=== PATIENT | male | born 1980 | race Caucasian/White ===

== ENCOUNTER 2021-06-27 14:13 | Outpatient (REF) | payer OTHER, SELFPAY ==
[2021-06-27 14:31] LABS: MANUAL DIFF FLAG NO
[2021-06-27 14:50] LABS: Basophils Percent Auto 0.4 % (0-2); Eosinophils Absolute Auto 0.2 X10*3/uL (0.0-0.4); Eosinophils Percent Auto 2.9 % (0-4); Hematocrit 39.4 % (42.0-52.0); Hemoglobin 13.4 g/dl (14.0-18.0); Imm Gran Abs Auto 0.02 X10*3/uL (0.00-0.03); Imm Gran Pct Auto 0.3 % (0.0-0.4); Lymphocytes Absolute Auto 2.3 X10*3/uL (1.2-4.9); Lymphocytes Percent Auto 28.7 % (20-40); Mean Corpuscular Hemoglobin 30.7 pg (27.0-33.0); Mean Corpuscular Volume 90.4 fL (80.0-98.0); Mean Platelet Volume 10.1 fL (9.4-12.4); Monocytes Absolute Auto 0.7 X10*3/uL (0.1-1.2); Monocytes Percent Auto 8.7 % (2-11); Neutrophils Absolute Auto 4.6 x10*3/uL (2.0-8.3); Platelet Count 325 X10*3/uL (160-400); Red Blood Count 4.36 X10*6/uL (4.60-5.80); Red Cell Distribution Width 12.9 % (11.0-16.0); White Blood Count 7.8 X10*3/uL (4.8-10.8)
[2021-06-27 14:57] LABS: Estimated Average Glucose 100 mg/dL; Hemoglobin A1c % 5.1 %
[2021-06-27 15:13] LABS: Alanine Aminotransferase 25 U/L (0-40); Albumin Level 4.4 g/dL (3.5-5.0); Alkaline Phosphatase 78 U/L (39-117); Anion Gap 11 (12-20); Aspartate Amino Transferase 28 U/L (5-37); Bilirubin Total 0.4 mg/dL (0.0-1.0); Blood Urea Nitrogen 14 mg/dL (9-16); Calcium 9.6 mg/dL (8.4-10.2); Carbon Dioxide 28 mmol/L (22-29); Chloride 105 mmol/L (96-108); Cholesterol 246 mg/dL; Estimated Glomerular Filt Rate > 60; Glucose Fasting 88 mg/dL (60-99); HDL Cholesterol 59 mg/dL; LDL Cholesterol Calculated 165 mg/dl; Sodium 140 mmol/L (135-145); Total Protein 7.2 g/dL (6.5-8.0); Triglycerides 111 mg/dL
[2021-06-27 15:34] LABS: TSH reflex Free T4 0.64 uIU/mL (0.32-4.0)
[2021-06-27 15:46] LABS: Folate > 20.0 ng/mL (> or = 4.0); Vitamin B12 590 pg/mL (200-900)
[2021-07-02 11:10] LABS: Vitamin D 25-OH, D2 <4 ng/mL; Vitamin D 25-OH, D3 27 ng/mL; Vitamin D 25-OH, Total 27 ng/mL (30-100)
== END 2021-06-27 14:14 | disposition home or self-care (01) ==
LOC: HO.LAB 14:13
PROVIDERS: PCP Internal Medicine; Visit Provider Nurse Practitioner Acute Care
DX: Z86.39 Personal history of other endocrine, nutritional and metabolic disease (principal); Z23 Encounter for immunization
CPT/HCPCS: 36415; 80053; 80061; 82306; 82607; 82746; 83036; 84443; 85025

== ENCOUNTER 2022-05-21 07:00 | Outpatient (RCR) | payer OTHER, SELFPAY | END 2022-08-15 07:41 | disposition home or self-care (01) | LOC: HO.PTWFD 07:00 | PROVIDERS: Visit Provider Family Medicine | DX: M54.9 Dorsalgia, unspecified (principal) | CPT/HCPCS: 97110; 97161; 97535 ==

== ENCOUNTER 2022-10-03 15:22 | Outpatient (REF) | payer OTHER, SELFPAY ==
--- NOTE | ~2022-10-03 | XR_ITS ---
EXAMINATION: XR CHEST CLINICAL INFORMATION: Cough. COMPARISON: None available. TECHNIQUE: 2 views of the chest were obtained. FINDINGS: No significant abnormality is noted involving the heart, lungs, mediastinum, bony thorax or soft tissues. XR/XR chest 2V IMPRESSION: Unremarkable examination.
== END 2022-10-03 15:23 | disposition home or self-care (01) ==
LOC: HO.HMGCX 15:22
PROVIDERS: PCP Internal Medicine; Visit Provider Physician Assistant Medical
DX: R05.9 Cough, unspecified (principal)
CPT/HCPCS: 71046

== ENCOUNTER 2022-10-03 18:17 | Emergency (ER) | payer OTHER, SELFPAY ==
--- NOTE | 2022-10-03 | ECG_ITS ---
Test Reason : CP Blood Pressure : / mmHG Vent. Rate : 060 BPM Atrial Rate : 060 BPM P-R Int : 144 ms QRS Dur : 092 ms QT Int : 372 ms P-R-T Axes : 048 070 057 degrees QTc Int : 372 ms Normal sinus rhythm Minimal voltage criteria for LVH, may be normal variant ( Sokolow-Gusman ) Borderline ECG No previous ECGs available Referred By: Aida Washington Electronically Signed By:RAUL DENNY MD
[2022-10-03 18:21] VITALS: BP 140/87; PULSE 67; RESP 19; TEMP 36.7; O2SAT 99; BMI 22.6
--- NOTE | 2022-10-03 18:21 | ED_ITS ---
HPI - Chest Pain General Chief Complaint: Chest Pain <Aida Washington NP - Last Filed: 10/03/22 18:23> Stated Complaint: Chest Pain when breathing sent by Dr for CT Scan? <Aida Washington NP - Last Filed: 10/03/22 18:23> Time Seen by Provider: 10/03/22 23:18 <Aida Washington NP - Last Filed: 10/03/22 18:23> Source: patient <Mayco Cason MD - Last Filed: 10/03/22 23:44> Mode of arrival: ambulatory <Mayco Cason MD - Last Filed: 10/03/22 23:44> Limitations: no limitations <Mayco Cason MD - Last Filed: 10/03/22 23:44> History of Present Illness HPI narrative: Patient history of anxiety no history of coronary disease complaining of left-sided chest pain for 3 weeks nonspecific pain feels deep inside feels increased pain on deep inspiration occasional cough he had URI few months ago seen his PCP wanted to rule out PE. Patient denies any leg swelling or pain <Mayco Cason MD - Last Filed: 10/03/22 23:44> Related Data Home Medications: Home Medications Medication Instructions Recorded Confirmed fluoxetine 40 mg capsule 40 mg PO BEDTIME 06/27/21 06/27/21 Previous Rx's Medication Instructions Recorded ibuprofen 600 mg tablet 600 mg PO Q6H PRN fever or pain 10/03/22 #30 tabs <Aida Washington NP - Last Filed: 10/03/22 18:23> Allergies/Adverse Reactions: Allergies Allergy/AdvReac Type Severity Reaction Status Date / Time No Known Allergies Allergy Verified 10/03/22 18:21 <Aida Washington NP - Last Filed: 10/03/22 18:23> Review of Systems Review of Systems: Yes all other systems are reviewed and are negative <Mayco Cason MD - Last Filed: 10/03/22 23:44> PMF Family History Family History: Family History Father No problems noted. Mother High blood pressure Heart problem Other Mental health problem <Aida Washington NP - Last Filed: 10/03/22 18:23> Social History Social History: Social History Housing: House Alcohol intake: former Patient Tobacco Use Status: Never used Tobacco Second Hand Smoke Exposure: Yes Substance Use Type: Marijuana service: No Current occupational status: unemployed <Aida Washington NP - Last Filed: 10/03/22 18:23> Physical Exam Vital Signs: Vital Signs: Last Vital Signs Temp 98.4 F 10/03/22 22:51 Pulse 57 10/03/22 22:51 Resp 17 10/03/22 22:51 BP 134/87 10/03/22 22:51 Pulse Ox 99 10/03/22 22:51 O2 Del Method Room Air 10/03/22 22:51 BMI result Body Mass Index 22.6 <Aida Washington NP - Last Filed: 10/03/22 18:23> Vital Signs: Last Vital Signs Temp 98.4 F 10/03/22 22:51 Pulse 57 10/03/22 22:51 Resp 17 10/03/22 22:51 BP 134/87 10/03/22 22:51 Pulse Ox 99 10/03/22 22:51 O2 Del Method Room Air 10/03/22 22:51 BMI result Body Mass Index 22.6 <Mayco Cason MD - Last Filed: 10/03/22 23:44> Vital Signs: Last Vital Signs Temp 98.4 F 10/03/22 22:51 Pulse 57 10/03/22 22:51 Resp 17 10/03/22 22:51 BP 134/87 10/03/22 22:51 Pulse Ox 99 10/03/22 22:51 O2 Del Method Room Air 10/03/22 22:51 BMI result Body Mass Index 22.6 <Keron Jameson MD - Last Filed: 10/07/22 17:43> Appearance: Alert. Oriented X3. No acute distress. Eyes: No pallor or icterus ENT: Pharynx normal. Oral Mucosa moist Neck: Normal inspection. Neck supple. CVS: Normal heart rate and rhythm. Pulses normal. Respiratory: No respiratory distress. Equal air entry bilateral, no wheezing/rales/rhonchi Abdomen: Soft and nontender. Bowel sounds are present, no mass palpable, no CVA tenderness Skin: Skin warm and dry. Normal skin color. Normal skin turgor. Extremities: No lower extremity edema. No calf tenderness Neuro: Oriented X 3. No motor deficit. <Mayco Cason MD - Last Filed: 10/03/22 23:44> Course Course Course Narrative: this is a rapid medical exam. Deferred additional HPI, ROS, PE to primary provider. 42 yo male here with pleuritic chest pain x several weeks. Patient was seen walk-in center and had a chest x-ray. This was reportedly normal. He was referred into the ER for further evaluation. Will obtain labs, EKG, COVID screen. <Aida Washington NP - Last Filed: 10/03/22 18:23> Medical Decision Making Medical Decision Making [facility] Narrative: Patient atypical left-sided chest pain for 3 weeks EKg high Sensitive troponin and D-dimer negative heart score of 0 will discharge patient home <Mayco Cason MD - Last Filed: 10/03/22 23:44> Differential Diagnosis CAD/ACS/PE/pneumonia/pneumonitis/pneumothorax <Mayco Cason MD - Last Filed: 10/03/22 23:44> Lab Data [facility] Lab Attestation statement: I reviewed the patient's lab results. <Mayco Cason MD - Last Filed: 10/03/22 23:44> Result Diagrams: 10/03/22 18:40 10/03/22 18:40 <Aida Washington NP - Last Filed: 10/03/22 18:23> Labs: Lab Results 10/03/22 10/03/22 10/03/22 Range/Units 18:40 18:40 18:40 WBC 6.9 (4.8-10.8) X10*3/uL RBC 4.17 L (4.60-5.80) X10*6/uL Hgb 12.9 L (14.0-18.0) g/dl Hct 37.2 L (42.0-52.0) % MCV 89.2 (80.0-98.0) fL MCH 30.9 (27.0-33.0) pg MCHC 34.7 (31.0-36.0) g/dl RDW 13.2 (11.0-16.0) % Plt Count 353 (160-400) X10*3/uL MPV 9.9 (9.4-12.4) fL Immature Gran % (Auto) 0.1 (0.0-0.4) % Neut % (Auto) 48.8 (45-73) % Lymph % (Auto) 36.2 (20-40) % Dooly % (Auto) 10.4 (2-11) % Eos % (Auto) 3.8 (0-4) % Baso % (Auto) 0.7 (0-2) % Lymph # (Auto) 2.5 (1.2-4.9) X10*3/uL Dooly # (Auto) 0.7 (0.1-1.2) X10*3/uL Eos # (Auto) 0.3 (0.0-0.4) X10*3/uL Baso # (Auto) 0.1 (0.0-0.2) X10*3/uL Abs Immat Gran (auto) 0.01 (0.00-0.03) X10*3/uL Absolute Neuts (auto) 3.4 (2.0-8.3) x10*3/uL Absolute Nucleated RBC 0.000 (0.0-0.012) X10*3/uL Nucleated RBC % (auto) 0.0 (0.0-0.2) /100WBC PT 10.9 (10.0-13.1) SEC INR 1.0 (0.9-1.1) D-Dimer High Sensitivty < 150 NG/ML Sodium 140 (135-145) mmol/L Potassium 4.1 (3.3-5.1) mmol/L Chloride 107 (96-108) mmol/L Carbon Dioxide 27 (22-29) mmol/L Anion Gap 10 L (12-20) BUN 18 H (9-16) mg/dL Creatinine 0.84 (0.5-1.4) mg/dL Estim Creat Clear Calc 102.8 Estimated GFR > 60 Random Glucose 86 (60-115) mg/dL Calcium 8.8 D (8.4-10.2) mg/dL Total Bilirubin 0.4 (0.0-1.0) mg/dL Direct Bilirubin 0.1 (0.0-0.5) mg/dL AST 25 (5-37) U/L ALT 22 (0-40) U/L Alkaline Phosphatase 66 (39-117) U/L Troponin I High Sens (<3.5-35.0) ng/L Total Protein 6.5 (6.5-8.0) g/dL Albumin 4.1 (3.5-5.0) g/dL COVID-19 (NANCY) (Negative) COVID-19 Clin Com 10/03/22 10/03/22 Range/Units 18:40 18:40 WBC (4.8-10.8) X10*3/uL RBC (4.60-5.80) X10*6/uL Hgb (14.0-18.0) g/dl Hct (42.0-52.0) % MCV (80.0-98.0) fL MCH (27.0-33.0) pg MCHC (31.0-36.0) g/dl RDW (11.0-16.0) % Plt Count (160-400) X10*3/uL MPV (9.4-12.4) fL Immature Gran % (Auto) (0.0-0.4) % Neut % (Auto) (45-73) % Lymph % (Auto) (20-40) % Dooly % (Auto) (2-11) % Eos % (Auto) (0-4) % Baso % (Auto) (0-2) % Lymph # (Auto) (1.2-4.9) X10*3/uL Dooly # (Auto) (0.1-1.2) X10*3/uL Eos # (Auto) (0.0-0.4) X10*3/uL Baso # (Auto) (0.0-0.2) X10*3/uL Abs Immat Gran (auto) (0.00-0.03) X10*3/uL Absolute Neuts (auto) (2.0-8.3) x10*3/uL Absolute Nucleated RBC (0.0-0.012) X10*3/uL Nucleated RBC % (auto) (0.0-0.2) /100WBC PT (10.0-13.1) SEC INR (0.9-1.1) D-Dimer High Sensitivty NG/ML Sodium (135-145) mmol/L Potassium (3.3-5.1) mmol/L Chloride (96-108) mmol/L Carbon Dioxide (22-29) mmol/L Anion Gap (12-20) BUN (9-16) mg/dL Creatinine (0.5-1.4) mg/dL Estim Creat Clear Calc Estimated GFR Random Glucose (60-115) mg/dL Calcium (8.4-10.2) mg/dL Total Bilirubin (0.0-1.0) mg/dL Direct Bilirubin (0.0-0.5) mg/dL AST (5-37) U/L ALT (0-40) U/L Alkaline Phosphatase (39-117) U/L Troponin I High Sens < 2.7 (<3.5-35.0) ng/L Total Protein (6.5-8.0) g/dL Albumin (3.5-5.0) g/dL COVID-19 (NANCY) Negative (Negative) COVID-19 Clin Com See Note <Aida Washington, NURSING STAFF DEVELOPMENT COORDINATOR - Last Filed: 10/03/22 18:23> Lab Results 10/03/22 10/03/22 10/03/22 Range/Units 18:40 18:40 18:40 WBC 6.9 (4.8-10.8) X10*3/uL RBC 4.17 L (4.60-5.80) X10*6/uL Hgb 12.9 L (14.0-18.0) g/dl Hct 37.2 L (42.0-52.0) % MCV 89.2 (80.0-98.0) fL MCH 30.9 (27.0-33.0) pg MCHC 34.7 (31.0-36.0) g/dl RDW 13.2 (11.0-16.0) % Plt Count 353 (160-400) X10*3/uL MPV 9.9 (9.4-12.4) fL Immature Gran % (Auto) 0.1 (0.0-0.4) % Neut % (Auto) 48.8 (45-73) % Lymph % (Auto) 36.2 (20-40) % Dooly % (Auto) 10.4 (2-11) % Eos % (Auto) 3.8 (0-4) % Baso % (Auto) 0.7 (0-2) % Lymph # (Auto) 2.5 (1.2-4.9) X10*3/uL Dooly # (Auto) 0.7 (0.1-1.2) X10*3/uL Eos # (Auto) 0.3 (0.0-0.4) X10*3/uL Baso # (Auto) 0.1 (0.0-0.2) X10*3/uL Abs Immat Gran (auto) 0.01 (0.00-0.03) X10*3/uL Absolute Neuts (auto) 3.4 (2.0-8.3) x10*3/uL Absolute Nucleated RBC 0.000 (0.0-0.012) X10*3/uL Nucleated RBC % (auto) 0.0 (0.0-0.2) /100WBC PT 10.9 (10.0-13.1) SEC INR 1.0 (0.9-1.1) D-Dimer High Sensitivty < 150 NG/ML Sodium 140 (135-145) mmol/L Potassium 4.1 (3.3-5.1) mmol/L Chloride 107 (96-108) mmol/L Carbon Dioxide 27 (22-29) mmol/L Anion Gap 10 L (12-20) BUN 18 H (9-16) mg/dL Creatinine 0.84 (0.5-1.4) mg/dL Estim Creat Clear Calc 102.8 Estimated GFR > 60 Random Glucose 86 (60-115) mg/dL Calcium 8.8 D (8.4-10.2) mg/dL Total Bilirubin 0.4 (0.0-1.0) mg/dL Direct Bilirubin 0.1 (0.0-0.5) mg/dL AST 25 (5-37) U/L ALT 22 (0-40) U/L Alkaline Phosphatase 66 (39-117) U/L Troponin I High Sens (<3.5-35.0) ng/L Total Protein 6.5 (6.5-8.0) g/dL Albumin 4.1 (3.5-5.0) g/dL COVID-19 (NANCY) (Negative) COVID-19 Clin Com 10/03/22 10/03/22 Range/Units 18:40 18:40 WBC (4.8-10.8) X10*3/uL RBC (4.60-5.80) X10*6/uL Hgb (14.0-18.0) g/dl Hct (42.0-52.0) % MCV (80.0-98.0) fL MCH (27.0-33.0) pg MCHC (31.0-36.0) g/dl RDW (11.0-16.0) % Plt Count (160-400) X10*3/uL MPV (9.4-12.4) fL Immature Gran % (Auto) (0.0-0.4) % Neut % (Auto) (45-73) % Lymph % (Auto) (20-40) % Dooly % (Auto) (2-11) % Eos % (Auto) (0-4) % Baso % (Auto) (0-2) % Lymph # (Auto) (1.2-4.9) X10*3/uL Dooly # (Auto) (0.1-1.2) X10*3/uL Eos # (Auto) (0.0-0.4) X10*3/uL Baso # (Auto) (0.0-0.2) X10*3/uL Abs Immat Gran (auto) (0.00-0.03) X10*3/uL Absolute Neuts (auto) (2.0-8.3) x10*3/uL Absolute Nucleated RBC (0.0-0.012) X10*3/uL Nucleated RBC % (auto) (0.0-0.2) /100WBC PT (10.0-13.1) SEC INR (0.9-1.1) D-Dimer High Sensitivty NG/ML Sodium (135-145) mmol/L Potassium (3.3-5.1) mmol/L Chloride (96-108) mmol/L Carbon Dioxide (22-29) mmol/L Anion Gap (12-20) BUN (9-16) mg/dL Creatinine (0.5-1.4) mg/dL Estim Creat Clear Calc Estimated GFR Random Glucose (60-115) mg/dL Calcium (8.4-10.2) mg/dL Total Bilirubin (0.0-1.0) mg/dL Direct Bilirubin (0.0-0.5) mg/dL AST (5-37) U/L ALT (0-40) U/L Alkaline Phosphatase (39-117) U/L Troponin I High Sens < 2.7 (<3.5-35.0) ng/L Total Protein (6.5-8.0) g/dL Albumin (3.5-5.0) g/dL COVID-19 (NANCY) Negative (Negative) COVID-19 Clin Com See Note <Mayco Cason MD - Last Filed: 10/03/22 23:44> Lab Results 10/03/22 10/03/22 10/03/22 Range/Units 18:40 18:40 18:40 WBC 6.9 (4.8-10.8) X10*3/uL RBC 4.17 L (4.60-5.80) X10*6/uL Hgb 12.9 L (14.0-18.0) g/dl Hct 37.2 L (42.0-52.0) % MCV 89.2 (80.0-98.0) fL MCH 30.9 (27.0-33.0) pg MCHC 34.7 (31.0-36.0) g/dl RDW 13.2 (11.0-16.0) % Plt Count 353 (160-400) X10*3/uL MPV 9.9 (9.4-12.4) fL Immature Gran % (Auto) 0.1 (0.0-0.4) % Neut % (Auto) 48.8 (45-73) % Lymph % (Auto) 36.2 (20-40) % Dooly % (Auto) 10.4 (2-11) % Eos % (Auto) 3.8 (0-4) % Baso % (Auto) 0.7 (0-2) % Lymph # (Auto) 2.5 (1.2-4.9) X10*3/uL Dooly # (Auto) 0.7 (0.1-1.2) X10*3/uL Eos # (Auto) 0.3 (0.0-0.4) X10*3/uL Baso # (Auto) 0.1 (0.0-0.2) X10*3/uL Abs Immat Gran (auto) 0.01 (0.00-0.03) X10*3/uL Absolute Neuts (auto) 3.4 (2.0-8.3) x10*3/uL Absolute Nucleated RBC 0.000 (0.0-0.012) X10*3/uL Nucleated RBC % (auto) 0.0 (0.0-0.2) /100WBC PT 10.9 (10.0-13.1) SEC INR 1.0 (0.9-1.1) D-Dimer High Sensitivty < 150 NG/ML Sodium 140 (135-145) mmol/L Potassium 4.1 (3.3-5.1) mmol/L Chloride 107 (96-108) mmol/L Carbon Dioxide 27 (22-29) mmol/L Anion Gap 10 L (12-20) BUN 18 H (9-16) mg/dL Creatinine 0.84 (0.5-1.4) mg/dL Estim Creat Clear Calc 102.8 Estimated GFR > 60 Random Glucose 86 (60-115) mg/dL Calcium 8.8 D (8.4-10.2) mg/dL Total Bilirubin 0.4 (0.0-1.0) mg/dL Direct Bilirubin 0.1 (0.0-0.5) mg/dL AST 25 (5-37) U/L ALT 22 (0-40) U/L Alkaline Phosphatase 66 (39-117) U/L Troponin I High Sens (<3.5-35.0) ng/L Total Protein 6.5 (6.5-8.0) g/dL Albumin 4.1 (3.5-5.0) g/dL COVID-19 (NANCY) (Negative) COVID-19 Clin Com 10/03/22 10/03/22 Range/Units 18:40 18:40 WBC (4.8-10.8) X10*3/uL RBC (4.60-5.80) X10*6/uL Hgb (14.0-18.0) g/dl Hct (42.0-52.0) % MCV (80.0-98.0) fL MCH (27.0-33.0) pg MCHC (31.0-36.0) g/dl RDW (11.0-16.0) % Plt Count (160-400) X10*3/uL MPV (9.4-12.4) fL Immature Gran % (Auto) (0.0-0.4) % Neut % (Auto) (45-73) % Lymph % (Auto) (20-40) % Dooly % (Auto) (2-11) % Eos % (Auto) (0-4) % Baso % (Auto) (0-2) % Lymph # (Auto) (1.2-4.9) X10*3/uL Dooly # (Auto) (0.1-1.2) X10*3/uL Eos # (Auto) (0.0-0.4) X10*3/uL Baso # (Auto) (0.0-0.2) X10*3/uL Abs Immat Gran (auto) (0.00-0.03) X10*3/uL Absolute Neuts (auto) (2.0-8.3) x10*3/uL Absolute Nucleated RBC (0.0-0.012) X10*3/uL Nucleated RBC % (auto) (0.0-0.2) /100WBC PT (10.0-13.1) SEC INR (0.9-1.1) D-Dimer High Sensitivty NG/ML Sodium (135-145) mmol/L Potassium (3.3-5.1) mmol/L Chloride (96-108) mmol/L Carbon Dioxide (22-29) mmol/L Anion Gap (12-20) BUN (9-16) mg/dL Creatinine (0.5-1.4) mg/dL Estim Creat Clear Calc Estimated GFR Random Glucose (60-115) mg/dL Calcium (8.4-10.2) mg/dL Total Bilirubin (0.0-1.0) mg/dL Direct Bilirubin (0.0-0.5) mg/dL AST (5-37) U/L ALT (0-40) U/L Alkaline Phosphatase (39-117) U/L Troponin I High Sens < 2.7 (<3.5-35.0) ng/L Total Protein (6.5-8.0) g/dL Albumin (3.5-5.0) g/dL COVID-19 (NANCY) Negative (Negative) COVID-19 Clin Com See Note <Keron Jameson MD - Last Filed: 10/07/22 17:43> Independent Interpretation I performed an independent interpretation of an: EKG <Mayco Cason MD - Last Filed: 10/03/22 23:44> Interpretation: Normal sinus rhythm 160 beats per minute LVH no acute ST-T no acute ischemia <Mayco aCson MD - Last Filed: 10/03/22 23:44> Scores Heart Score History: -0- slightly suspicious <Mayco Cason MD - Last Filed: 10/03/22 23:44> ECG: -0- normal <Mayco Cason MD - Last Filed: 10/03/22 23:44> Age: -0- < or = 45 <Mayco Cason MD - Last Filed: 10/03/22 23:44> Risk factory: -0- no risk factors known <Mayco Cason MD - Last Filed: 10/03/22 23:44> Troponin: -0- < or = normal limit <Mayco Cason MD - Last Filed: 10/03/22 23:44> Score: 0 <Mayco Cason MD - Last Filed: 10/03/22 23:44> 0 <Keron Jameson MD - Last Filed: 10/07/22 17:43> Risk: 1.7% <Mayco Cason MD - Last Filed: 10/03/22 23:44> 1.7% <Keron Jameson MD - Last Filed: 10/07/22 17:43> Discharge Plan Discharge Clinical Impression: Atypical chest pain <Aida Washington NP - Last Filed: 10/03/22 18:23> Patient Disposition: Home, Self-Care <Aida Washington NP - Last Filed: 10/03/22 18:23> Instructions: Noncardiac Chest Pain (ED) <Aida Washington NP - Last Filed: 10/03/22 18:23> Additional Instructions: The chest pain is likely not from the heart or the lungs likely musculoskeletal Take ibuprofen for pain And follow with PCP <Aida Washington NP - Last Filed: 10/03/22 18:23> Prescriptions: New ibuprofen 600 mg tablet 600 mg PO Q6H PRN (Reason: fever or pain) Qty: 30 0RF No Action fluoxetine 40 mg capsule 40 mg PO BEDTIME <Aida Washington NP - Last Filed: 10/03/22 18:23> Interventions: ED Discharge Assessment Last Done: 10/04/22 00:09 <Aida Washington NP - Last Filed: 10/03/22 18:23> Discharge Date/Time: 10/04/22 00:11 <Aida Washington NP - Last Filed: 10/03/22 18:23>
[2022-10-03 18:46] LABS: MANUAL DIFF FLAG NO
[2022-10-03 18:48] LABS: Basophils Absolute Auto 0.1 X10*3/uL (0.0-0.2); Basophils Percent Auto 0.7 % (0-2); Eosinophils Absolute Auto 0.3 X10*3/uL (0.0-0.4); Eosinophils Percent Auto 3.8 % (0-4); Hematocrit 37.2 % (42.0-52.0); Hemoglobin 12.9 g/dl (14.0-18.0); Imm Gran Abs Auto 0.01 X10*3/uL (0.00-0.03); Imm Gran Pct Auto 0.1 % (0.0-0.4); Lymphocytes Absolute Auto 2.5 X10*3/uL (1.2-4.9); Lymphocytes Percent Auto 36.2 % (20-40); Mean Corpuscular HGB Conc 34.7 g/dl (31.0-36.0); Mean Corpuscular Hemoglobin 30.9 pg (27.0-33.0); Mean Corpuscular Volume 89.2 fL (80.0-98.0); Mean Platelet Volume 9.9 fL (9.4-12.4); Monocytes Absolute Auto 0.7 X10*3/uL (0.1-1.2); Monocytes Percent Auto 10.4 % (2-11); Neutrophils Absolute Auto 3.4 x10*3/uL (2.0-8.3); Neutrophils Percent Auto 48.8 % (45-73); Platelet Count 353 X10*3/uL (160-400); Red Blood Count 4.17 X10*6/uL (4.60-5.80); Red Cell Distribution Width 13.2 % (11.0-16.0); White Blood Count 6.9 X10*3/uL (4.8-10.8)
[2022-10-03 18:58] LABS: Prothrombin Time 10.9 SEC (10.0-13.1)
[2022-10-03 19:05] LABS: COVID-19 Test Negative (Negative); IDNOW Serial# 08D9AD1C
[2022-10-03 19:08] LABS: Alanine Aminotransferase 22 U/L (0-40); Albumin Level 4.1 g/dL (3.5-5.0); Alkaline Phosphatase 66 U/L (39-117); Anion Gap 10 (12-20); Aspartate Amino Transferase 25 U/L (5-37); Bilirubin Direct 0.1 mg/dL (0.0-0.5); Bilirubin Total 0.4 mg/dL (0.0-1.0); Blood Urea Nitrogen 18 mg/dL (9-16); Calcium 8.8 mg/dL (8.4-10.2); Carbon Dioxide 27 mmol/L (22-29); Chloride 107 mmol/L (96-108); Creatinine Clr Calc Pharmacy 102.8; Estimated Glomerular Filt Rate > 60; Glucose Random 86 mg/dL (60-115); Potassium 4.1 mmol/L (3.3-5.1); Sodium 140 mmol/L (135-145); Total Protein 6.5 g/dL (6.5-8.0)
[2022-10-03 19:20] LABS: Troponin-I High Sensitivity < 2.7 ng/L (<3.5-35.0)
[2022-10-03 19:50] LABS: D Dimer High Sensitivity < 150 NG/ML
[2022-10-03 22:51] VITALS: BP 134/87; PULSE 57; RESP 17; TEMP 36.9; O2SAT 99
== END 2022-10-04 00:11 | disposition home or self-care (01) ==
PROVIDERS: Nurse Practitioner Family; Emergency Provider Internal Medicine; PCP Internal Medicine
DX: R07.89 Other chest pain (principal); R06.02 Shortness of breath; R05.9 Cough, unspecified; Z20.822 Contact with and (suspected) exposure to COVID-19; Z20.828 Contact with and (suspected) exposure to other viral communicable diseases; Z79.899 Other long term (current) drug therapy
CPT/HCPCS: 36415; 80048; 80076; 84484; 85025; 85379; 85610; 87635; 93005; 99283

== ENCOUNTER 2022-11-01 07:28 | Outpatient (REF) | payer OTHER, SELFPAY ==
--- NOTE | ~2022-11-01 | CT_ITS ---
EXAMINATION: CT CHEST WITHOUT CONTRAST CLINICAL INFORMATION: Chest pain COMPARISON: Previous chest x-ray September 2022 TECHNIQUE: Multidetector volumetric CT imaging of the chest was done. Axial MIP volume rendering provided. Sagittal and coronal reformatted images were obtained. This CT examination was performed using dose optimization techniques as appropriate, variously including the following: *Automated exposure control *Adjustment of mA and/or kV according to patient size (this includes techniques or standardized protocols for targeted exams where dose is matched to indication/reason for exam; i.e. extremities or head) *Use of iterative reconstruction technique DLP: 120 mGy-cm FINDINGS: MORTGAGE LOAN REVIEWER: Unremarkable LUNGS: Question 3 mm posterior left upper lobe peripheral or subpleural nodule versus pleural calcification adjacent to the left upper lobe axial image 187 series 5. Small 2 mm peripheral or subpleural right upper lobe nodule axial image 186 series 5. The lungs are otherwise clear. No evidence of emphysema or interstitial lung disease. Secretions in the right side of the trachea. MEDIASTINUM: The mediastinum is normal. CORONARY ARTERY CALCIFICATION: None visualized on this study. PLEURA: There is no pleural effusion. AXILLA: No lymphadenopathy. UPPER ABDOMEN: Unremarkable. OSSEOUS STRUCTURES: Unremarkable. CT/CT chest wo IV con IMPRESSION: Small pulmonary nodules or micronodules. According to the UPDATED 2017 Fleischner Society recommendations, the advised follow-up imaging for less than 6 mm solid nodule: Low risk, no chest CT follow-up and high risk, optional chest CT follow-up in one year. Fleischner guidelines were followed.
== END 2022-11-01 07:29 | disposition home or self-care (01) ==
LOC: HO.CT 07:28
PROVIDERS: PCP Internal Medicine; Visit Provider Nurse Practitioner Family
DX: R07.89 Other chest pain (principal)
CPT/HCPCS: 71250

== ENCOUNTER → 2022-11-27 15:10 | Outpatient (BNVA) | payer OTHER, SELFPAY | PROVIDERS: PCP Internal Medicine; Visit Provider Nurse Practitioner Family | DX: R91.8 Other nonspecific abnormal finding of lung field (principal) | CPT/HCPCS: 99202 ==

== ENCOUNTER 2023-01-23 08:30 | Outpatient (AMB) | payer OTHER, SELFPAY ==
--- NOTE | 2023-01-23 08:45 | A.OFFPC_ITS ---
Vital Signs 01/23/23 08:47 Height 5 ft 6 in Weight 139 lb 4 oz BMI 22.5 BP 120/70 Blood Pressure Location Lt brachial Position Sitting Pulse 78 Pulse Source Pulse Oximeter Pulse Oximetry (%) 98 Oxygen Delivery Method Room Air Intake Visit Reasons: Annual PE Intake Note: Patient is here today for a physical. Repeater Operator Required: No Small Products Ii Assembler: Not Required per policy Accompanied by: Self / Same As Patient Allergies No Known Allergies Allergy (Verified 01/23/23 09:28) Medication List - Last Reconciled 01/23/23 by Wilmer Burt MD No Known Home Meds Tobacco use date assessed: 01/23/23 Dental Screening Dental Screen Date: 01/23/23 Did you have a dental visit in the last 12 months?: No Did you have a dental problem in the last 6 months where you did not have access to dental care?: No Was dental information given to patient?: No HPI Annual PE HPI Details 43-year-old male presents to the office for an annual physical. Patient suffers from OCD and depression. He sees a therapist every month. He was taking SSRIs which he discontinued 6 months ago. He is trying to control his symptoms without medications. [facility] Surgical History No pertinent past surgical history Family History Father No problems noted. Mother High blood pressure Heart problem Other Mental health problem Social History Housing: House Alcohol intake: former Patient Tobacco Use Status: Never used Tobacco e-Cigarette/Vaping Use: Never Used Second Hand Smoke Exposure: Yes Substance Use Type: Marijuana service: No Current occupational status: unemployed Cognitive needs: No Hearing needs: No Vision needs: No Questionnaire PHQ-9 Over the last 2 weeks, how often have you been bothered by any of the following problems? 1. Little interest or pleasure in doing things: several days 2. Feeling down, depressed, or hopeless: several days 3. Trouble falling or staying asleep, or sleeping too much: not at all 4. Feeling tired or having little energy: more than half the days 5. Poor appetite or overeating: several days 6. Feeling bad about yourself - or that you are a failure or have let yourself or your family down: several days 7. Trouble concentrating on things, such as reading the newspaper or watching television: not at all 8. Moving or speaking so slowly that other people could have noticed. Or the opposite - being so fidgety or restless that you have been moving around a lot more than usual: several days 9. Thoughts that you would be better off or of hurting yourself in some way: not at all Total score: 7 Depression Screening Interpretation: Positive Depression Screening Follow-up: Existing condition and In treatment Source: Developed by Drs. Harvey Acosta, Soraya Rouse, Lit Quijano and colleagues, with an educational graciela from [employer]. Thrive Questionnaire Date Thrive assessed: 10/22/22 GRANT-7 AMB Questionnaire GRANT-7 Date GRANT - 7 assessed: 01/23/23 Feeling nervous, anxious, or on edge: 2 = More than half the days Not being able to stop or control worryin = More than half the days Worrying too much about different things: 2 = More than half the days Trouble relaxin = More than half the days Being so restless that it is hard to sit still: 0 = Not at all Becoming easily annoyed or irritable: 2 = More than half the days Feeling afraid as if something awful might happen: 0 = Not at all Total GRANT-7 score (0-4 normal; 5-9 mild; 10-14 moderate; 15-21 severe): 10 Source: Developed by Drs. Harvey Acosta, Soraya Rouse, Lit Quijano and colleagues, with an educational graciela from [employer]. Physical exam (Primary Care) Vital Signs: Last Vital Signs Pulse 78 01/23/23 08:47 BP 120/70 01/23/23 08:47 Pulse Ox 98 01/23/23 08:47 Oxygen Delivery Method Room Air 01/23/23 08:47 BMI result Body Mass Index 22.5 Tobacco/Smoking Status: Tobacco use Status Tobacco use date assessed 01/23/23 01/23/23 08:53 Patient Tobacco Use Status Never used Tobacco 01/23/23 08:53 e-Cigarette/Vaping Use Never Used 01/23/23 08:53 PHQ-9: PHQ-9 Score PHQ-9: Total score 7 01/23/23 08:53 Depression Screening Interpretation: Positive Depression Screening Follow-up: Existing condition and In treatment Thrive Assessment: Date of Thrive Assessment Date Thrive assessed 10/22/22 01/23/23 08:53 Const General: cooperative, healthy appearing and comfortable HENMT Head: Yes normal to inspection and Yes atraumatic Eyes General: appearance normal, both eyes and all related structures Neck Neck: Yes normal visual inspection and Yes full ROM Chest Chest palpation & inspection: normal inspection of the chest Resp Effort & Inspection: normal respiratory effort Auscultation: clear to auscultation bilaterally Cardio Jugular venous distension: no JVD Palpation: normal PMI Rate: regular rate Heart sounds: S1 normal heart sound present and S2 normal heart sound present GI Palpation (GI): Soft to palpation and No hepatosplenomegaly present Extrem General: Yes normal to inspection and Yes full ROM Assessment and Plan Assessment & Plan (1) Generalized anxiety disorder: Code(s): F41.1 - Generalized anxiety disorder Plan: Continue therapy. I advised the patient to return back to using SSRIs if his symptoms worsen. (2) Obsessive compulsive disorder: Code(s): F42.9 - Obsessive-compulsive disorder, unspecified Plan: As above. (3) Encounter for annual physical exam: Code(s): Z00.00 - Encounter for general adult medical examination without abnormal findings Plan: Blood work for lipid panel ordered. Coding Level of Care Code Est Pt Prev Care 40-64y(08311) Diagnoses Generalized anxiety disorder F41.1 Obsessive compulsive disorder F42.9 Encounter for annual physical exam Z00.00
[2023-01-23 08:47] VITALS: BP 120/70; PULSE 78; O2SAT 98; BMI 22.5
== END 2023-01-23 09:21 | disposition home or self-care (01) ==
PROVIDERS: PCP Internal Medicine; Visit Provider Internal Medicine
DX: F41.1 Generalized anxiety disorder (principal); F42.9 Obsessive-compulsive disorder, unspecified; Z00.00 Encounter for general adult medical examination without abnormal findings
CPT/HCPCS: 99396

== ENCOUNTER 2023-07-03 09:30 | Outpatient (REF) | payer OTHER, SELFPAY ==
[2023-07-03 11:01] LABS: Cholesterol 178 mg/dL (<200); HDL Cholesterol 54 mg/dL (>40); LDL Cholesterol Calculated 109 mg/dL (<100); Triglycerides 75 mg/dL (<150)
== END 2023-07-03 09:31 | disposition home or self-care (01) ==
LOC: HO.LAB 09:30
PROVIDERS: PCP Internal Medicine; Visit Provider Internal Medicine
DX: Z86.39 Personal history of other endocrine, nutritional and metabolic disease (principal)
CPT/HCPCS: 36415; 80061

== ENCOUNTER 2023-07-31 08:15 | Outpatient (AMB) | payer OTHER, SELFPAY ==
--- NOTE | 2023-07-31 08:16 | MHC.PC.OV ---
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 Patient is at baseline state of health. His anxiety and OCD symptoms are well controlled without medications. He does have issues at times but is able to resolve them by relaxation techniques. Sleeping well at night. Currently working as a oil transport driver. Not exercising or following any particular diet. Recently had blood work done for cholesterol levels. [facility] Medical History (Updated 07/31/23 @ 08:35 by Wilmer Burt MD) Generalized anxiety disorder Obsessive compulsive disorder Lung nodules Surgical History No pertinent past surgical history Family History Father No problems noted. Mother High blood pressure Heart problem Other Mental health problem Social History Housing: House Alcohol intake: current Alcohol intake frequency: holidays/special occasions only Alcohol type: beer and wine Patient Tobacco Use Status: Never used Tobacco e-Cigarette/Vaping Use: Never Used Second Hand Smoke Exposure: Yes Substance Use Type: Marijuana service: No Current occupational status: unemployed Cognitive needs: No Hearing needs: No Vision needs: No Questionnaire PHQ-9 Over the last 2 weeks, how often have you been bothered by any of the following problems? 1. Little interest or pleasure in doing things: not at all 2. Feeling down, depressed, or hopeless: several days 3. Trouble falling or staying asleep, or sleeping too much: not at all 4. Feeling tired or having little energy: not at all 5. Poor appetite or overeating: not at all 6. Feeling bad about yourself - or that you are a failure or have let yourself or your family down: not at all 7. Trouble concentrating on things, such as reading the newspaper or watching television: not at all 8. Moving or speaking so slowly that other people could have noticed. Or the opposite - being so fidgety or restless that you have been moving around a lot more than usual: not at all 9. Thoughts that you would be better off or of hurting yourself in some way: not at all Total score: 1 Depression Screening Interpretation: Negative Depression Screening Done: Yes Source: Developed by Drs. Harvey Acosta, Soraya Rouse, Lit Quijano and colleagues, with an educational graciela from [employer]. Thrive Questionnaire Date Thrive assessed: 07/31/23 I am a: Patient What is your living situation today?: I have a steady place to live Within the past 12 months, did the food you bought not last and you didn't have the money to get more?: Never true Within the past 12 months, did you worry whether your food would run out before you got money to buy more?: Never true Do you have trouble paying for medicines?: No Do you have trouble getting transportation to medical appointments?: No Do you have trouble paying your heating and electricity bill?: No Do you have trouble taking care of your child, family member or friend?: No Do you have trouble with day-to-day activities such as bathing, preparing meals, shopping, managing finances, etc.?: No Are you currently unemployed and looking for a job?: No Are you interested in more education?: No Please select the resources that you would like help with: None Currently or been in a relationship where the following occur: no concerns reported THRIVE Score: 0 AUDIT C Alcohol Use Questionnaire (AUDIT-C) 1. How often do you have a drink containing alcohol?: Monthly or less 2. How many drinks containing alcohol do you have on a typical day when you are drinking?: 1 or 2 3. How often do you have six or more drinks on one occasion?: Never Total Score: 1 Score Reviewed/Action Taken: Yes (reviewed, no action ) GRANT-7 AMB Questionnaire GRANT-7 Date GRANT - 7 assessed: 07/31/23 Feeling nervous, anxious, or on edge: 1 = Several days Not being able to stop or control worryin = Not at all Worrying too much about different things: 1 = Several days Trouble relaxin = Not at all Being so restless that it is hard to sit still: 0 = Not at all Becoming easily annoyed or irritable: 0 = Not at all Feeling afraid as if something awful might happen: 0 = Not at all Total GRANT-7 score (0-4 normal; 5-9 mild; 10-14 moderate; 15-21 severe): 2 Source: Developed by Drs. Harvey Acosta, Soraya Rouse, Lit Quijano and colleagues, with an educational graciela from [employer]. Physical exam (Primary Care) Vital Signs: Last Vital Signs Pulse 71 07/31/23 08:19 BP 112/70 07/31/23 08:19 Pulse Ox 100 07/31/23 08:19 Oxygen Delivery Method Room Air 07/31/23 08:19 Care Plan Goal for BP management: Blood pressure is in range. On no medications. BMI result Body Mass Index 21.9 Tobacco/Smoking Status: Tobacco use Status Tobacco use date assessed 07/31/23 07/31/23 08:23 Patient Tobacco Use Status Never used Tobacco 07/31/23 08:23 e-Cigarette/Vaping Use Never Used 07/31/23 08:23 PHQ-9: PHQ-9 Score PHQ-9: Total score 1 07/31/23 08:23 Depression Screening Interpretation: Negative Thrive Assessment: Date of Thrive Assessment Date Thrive assessed 07/31/23 07/31/23 08:23 Currently or been in a relationship where the following occur: no concerns reported Const General: cooperative and healthy appearing Nutritional Appearance: well nourished Orientation/consciousness: patient oriented x3 Limitations: no limitations HENMT Head: Yes normal to inspection Eyes General: appearance normal, both eyes and all related structures Neck Neck: Yes normal visual inspection Chest Chest palpation & inspection: normal palpation of entire chest wall Resp Effort & Inspection: normal respiratory effort Neuro General: patient oriented x3 Assessment and Plan Assessment & Plan (1) Generalized anxiety disorder: Code(s): F41.1 - Generalized anxiety disorder Plan: Patient is able to function and do all activities of daily living without medications. Cholesterol blood work reviewed. LDL is in range and no medications are needed. 15 minutes spent on counseling including various relaxation techniques. (2) Obsessive compulsive disorder: Code(s): F42.9 - Obsessive-compulsive disorder, unspecified (3) Lung nodules: Code(s): R91.8 - Other nonspecific abnormal finding of lung field Coding Level of Care Code Est Pt Level 4 (66401) Diagnoses Generalized anxiety disorder F41.1 Obsessive compulsive disorder F42.9 Lung nodules R91.8
[2023-07-31 08:19] VITALS: BP 112/70; PULSE 71; O2SAT 100; BMI 21.9
== END 2023-07-31 08:35 | disposition home or self-care (01) ==
PROVIDERS: PCP Internal Medicine; Visit Provider Internal Medicine
DX: F41.1 Generalized anxiety disorder (principal); F42.9 Obsessive-compulsive disorder, unspecified; R91.8 Other nonspecific abnormal finding of lung field
CPT/HCPCS: 99214

== ENCOUNTER 2023-10-22 07:59 | Outpatient (REF) | payer OTHER, SELFPAY ==
--- NOTE | ~2023-10-22 | CT_ITS ---
EXAMINATION: CT CHEST WITHOUT CONTRAST CLINICAL INFORMATION: Follow-up pulmonary nodule. COMPARISON: CT chest 11/01/2022. TECHNIQUE: Multidetector volumetric CT imaging of the chest was done. Axial MIP volume rendering provided. Sagittal and coronal reformatted images were obtained. This CT examination was performed using dose optimization techniques as appropriate, variously including the following: *Automated exposure control *Adjustment of mA and/or kV according to patient size (this includes techniques or standardized protocols for targeted exams where dose is matched to indication/reason for exam; i.e. extremities or head) *Use of iterative reconstruction technique DLP: 106 mGy-cm FINDINGS: LUNGS: No evidence of emphysema or interstitial lung disease. Calcified 3 mm nodule posterior left upper lobe along the pleural surface is stable and consistent with a granuloma. Tiny 2 mm subpleural nodule right upper lobe is stable. No new or suspicious pulmonary nodules. No consolidation. MEDIASTINUM: No adenopathy. No pericardial effusion. CORONARY ARTERY CALCIFICATION: None visualized on this study. PLEURA: There is no pleural effusion. No pleural mass or thickening. AXILLA: No lymphadenopathy. UPPER ABDOMEN: Unremarkable. OSSEOUS STRUCTURES: Unremarkable. CT/CT chest wo IV con IMPRESSION: Stable tiny lung nodules. No follow-up imaging is recommended as per Fleischner Society guidelines. Fleischner guidelines were followed.
== END 2023-10-22 08:00 | disposition home or self-care (01) ==
LOC: HO.CT 07:59
PROVIDERS: PCP Internal Medicine; Visit Provider Nurse Practitioner Family
DX: R91.8 Other nonspecific abnormal finding of lung field (principal)
CPT/HCPCS: 71250

== ENCOUNTER 2024-02-05 09:28 | Outpatient (AMB) | payer OTHER, SELFPAY ==
[2024-02-05 09:30] VITALS: BP 104/68; PULSE 81; O2SAT 98; BMI 21.3
--- NOTE | 2024-02-05 09:30 | A.OFFPC_ITS ---
Vital Signs 02/05/24 09:30 Height 5 ft 6 in Weight 132 lb 0.4 oz BMI 21.3 BP 104/68 Blood Pressure Location Lt brachial Position Sitting Pulse 81 Pulse Source Pulse Oximeter Pulse Oximetry (%) 98 Oxygen Delivery Method Room Air Intake Visit Reasons: Annual Exam Intake Note: Patient is here today for a physical. 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 Patient has a strong family history of colon cancer and had a screening colonoscopy in 11/10/2023. [facility] Medical History Generalized anxiety disorder Obsessive compulsive disorder Lung nodules Surgical History No pertinent past surgical history Family History Father No problems noted. Mother High blood pressure Heart problem Other Mental health problem Social History Housing: House Alcohol intake: current Alcohol intake frequency: holidays/special occasions only Alcohol type: beer and wine Patient Tobacco Use Status: Never used Tobacco e-Cigarette/Vaping Use: Never Used Second Hand Smoke Exposure: Yes Substance Use Type: Marijuana service: No Current occupational status: unemployed Cognitive needs: No Hearing needs: No Vision needs: No Questionnaire PHQ-9 Over the last 2 weeks, how often have you been bothered by any of the following problems? 1. Little interest or pleasure in doing things: not at all 2. Feeling down, depressed, or hopeless: several days 3. Trouble falling or staying asleep, or sleeping too much: not at all 4. Feeling tired or having little energy: not at all 5. Poor appetite or overeating: not at all 6. Feeling bad about yourself - or that you are a failure or have let yourself or your family down: not at all 7. Trouble concentrating on things, such as reading the newspaper or watching television: not at all 8. Moving or speaking so slowly that other people could have noticed. Or the opposite - being so fidgety or restless that you have been moving around a lot more than usual: not at all 9. Thoughts that you would be better off or of hurting yourself in some way: not at all Total score: 1 Depression Screening Interpretation: Negative Depression Screening Done: Yes Source: Developed by Drs. Harvey Acosta, Soraya Rouse, Lit Quijano and colleagues, with an educational graciela from [employer]. Thrive Questionnaire Date Thrive assessed: 07/31/23 I am a: Patient What is your living situation today?: I have a steady place to live Within the past 12 months, did the food you bought not last and you didn't have the money to get more?: Never true Within the past 12 months, did you worry whether your food would run out before you got money to buy more?: Never true Do you have trouble paying for medicines?: No Do you have trouble getting transportation to medical appointments?: No Do you have trouble paying your heating and electricity bill?: No Do you have trouble taking care of your child, family member or friend?: No Do you have trouble with day-to-day activities such as bathing, preparing meals, shopping, managing finances, etc.?: No Are you currently unemployed and looking for a job?: No Are you interested in more education?: No Please select the resources that you would like help with: None THRIVE Score: 0 AUDIT C Alcohol Use Questionnaire (AUDIT-C) 1. How often do you have a drink containing alcohol?: Monthly or less 2. How many drinks containing alcohol do you have on a typical day when you are drinking?: 1 or 2 3. How often do you have six or more drinks on one occasion?: Never Total Score: 1 Score Reviewed/Action Taken: Yes (reviewed, no action ) GRANT-7 AMB Questionnaire GRANT-7 Date GRANT - 7 assessed: 07/31/23 Feeling nervous, anxious, or on edge: 1 = Several days Not being able to stop or control worryin = Not at all Worrying too much about different things: 1 = Several days Trouble relaxin = Not at all Being so restless that it is hard to sit still: 0 = Not at all Becoming easily annoyed or irritable: 0 = Not at all Feeling afraid as if something awful might happen: 0 = Not at all Total GRANT-7 score (0-4 normal; 5-9 mild; 10-14 moderate; 15-21 severe): 2 Source: Developed by Drs. Harvey Acosta, Soraya Rouse, Lit Quijano and colleagues, with an educational graciela from [employer]. Physical exam (Primary Care) Vital Signs: Last Vital Signs Pulse 81 02/05/24 09:30 BP 104/68 02/05/24 09:30 Pulse Ox 98 02/05/24 09:30 Oxygen Delivery Method Room Air 02/05/24 09:30 Care Plan Goal for BP management: Blood pressure is in range. Currently on no medications. BMI result Body Mass Index 21.3 Tobacco/Smoking Status: Tobacco use Status Tobacco use date assessed 02/05/24 02/05/24 09:37 Patient Tobacco Use Status Never used Tobacco 02/05/24 09:37 e-Cigarette/Vaping Use Never Used 02/05/24 09:37 PHQ-9: PHQ-9 Score PHQ-9: Total score 1 02/05/24 09:37 Depression Screening Interpretation: Negative Thrive Assessment: Date of Thrive Assessment Date Thrive assessed 07/31/23 02/05/24 09:37 Const General: cooperative and healthy appearing Nutritional Appearance: well nourished Orientation/consciousness: patient oriented x3 Limitations: no limitations HENMT Head: Yes normal to inspection Eyes General: appearance normal, both eyes and all related structures Neck Neck: Yes normal visual inspection Chest Chest palpation & inspection: normal palpation of entire chest wall Resp Effort & Inspection: normal respiratory effort Neuro General: patient oriented x3 Assessment and Plan Assessment & Plan (1) Encounter for annual physical exam: Code(s): Z00.00 - Encounter for general adult medical examination without abnormal findings Plan: Blood work has been ordered. Will call with results. (2) Generalized anxiety disorder: Code(s): F41.1 - Generalized anxiety disorder Plan: Condition is stable. Patient is reluctant to start medications. Patient has a therapist whom he talks to every day. Coding Level of Care Code Est Pt Prev Care 40-64y(44870) Diagnoses Encounter for annual physical exam Z00.00 Generalized anxiety disorder F41.1
== END 2024-02-05 10:20 | disposition home or self-care (01) ==
PROVIDERS: PCP Internal Medicine; Visit Provider Internal Medicine
DX: Z00.00 Encounter for general adult medical examination without abnormal findings (principal); F41.1 Generalized anxiety disorder
CPT/HCPCS: 99396

== ENCOUNTER 2024-08-13 10:40 | Outpatient (REF) | payer OTHER, SELFPAY ==
[2024-08-13 10:55] LABS: MANUAL DIFF FLAG NO
[2024-08-13 11:39] LABS: Basophils Percent Auto 0.6 % (0-2); Eosinophils Absolute Auto 0.2 X10*3/uL (0.0-0.4); Eosinophils Percent Auto 3.6 % (0-4); Hematocrit 39.5 % (42.0-52.0); Hemoglobin 13.4 g/dl (14.0-18.0); Imm Gran Abs Auto 0.02 X10*3/uL (0.00-0.03); Imm Gran Pct Auto 0.3 % (0.0-0.4); Lymphocytes Absolute Auto 2.2 X10*3/uL (1.2-4.9); Lymphocytes Percent Auto 36.1 % (20-40); Mean Corpuscular HGB Conc 33.9 g/dl (31.0-36.0); Mean Corpuscular Hemoglobin 30.5 pg (27.0-33.0); Mean Corpuscular Volume 89.8 fL (80.0-98.0); Mean Platelet Volume 10.3 fL (9.4-12.4); Monocytes Absolute Auto 0.5 X10*3/uL (0.1-1.2); Monocytes Percent Auto 8.8 % (2-11); Neutrophils Absolute Auto 3.1 x10*3/uL (2.0-8.3); Neutrophils Percent Auto 50.6 % (45-73); Platelet Count 355 X10*3/uL (160-400); Red Cell Distribution Width 13.3 % (11.0-16.0); White Blood Count 6.2 X10*3/uL (4.8-10.8)
[2024-08-13 11:43] LABS: Estimated Average Glucose 103 mg/dL; Hemoglobin A1C 116.6249 umol/L; Hemoglobin A1c % 5.2 % (<6.0); Total Hemoglobin (HGBA1C) 3539.0895 umol/L
[2024-08-13 12:29] LABS: Alanine Aminotransferase 25 U/L (0-40); Albumin Level 4.1 g/dL (3.5-5.0); Alkaline Phosphatase 62 U/L (39-117); Anion Gap 9 (12-20); Aspartate Amino Transferase 26 U/L (5-37); Bilirubin Direct 0.2 mg/dL (0.0-0.5); Bilirubin Total 0.5 mg/dL (0.0-1.0); Blood Urea Nitrogen 15 mg/dL (9-16); Calcium 9.2 mg/dL (8.4-10.2); Carbon Dioxide 27 mmol/L (22-29); Chloride 108 mmol/L (96-108); Cholesterol 206 mg/dL (<200); Estimated Glomerular Filt Rate > 60; Glucose Fasting 89 mg/dL (60-99); HDL Cholesterol 64 mg/dL (>40); LDL Cholesterol Calculated 131 mg/dL (<100); Potassium 3.9 mmol/L (3.3-5.1); Sodium 140 mmol/L (135-145); Total Protein 7.3 g/dL (6.5-8.0); Triglycerides 59 mg/dL (<150)
[2024-08-13 12:32] LABS: TSH reflex Free T4 0.84 uIU/mL (0.32-4.0); Vitamin D 25-OH Total 23.9 ng/mL (>30)
[2024-08-13 12:39] LABS: PSA,Total (Free>4and<10) 0.56 ng/mL (0.00-4.00)
[2024-08-13 12:44] LABS: Folate 14.9 ng/mL (> or = 4.0); Vitamin B12 587 pg/mL (200-900)
[2024-08-18 15:24] LABS: Vitamin B1 10 nmol/L (8-30)
== END 2024-08-13 10:41 | disposition home or self-care (01) ==
LOC: HO.LAB 10:40
PROVIDERS: PCP Internal Medicine; Visit Provider Physician Assistant Medical
DX: Z00.00 Encounter for general adult medical examination without abnormal findings (principal)
CPT/HCPCS: 36415; 80053; 80061; 80076; 82248; 82306; 82607; 82746; 83036; 83735; 84153; 84425; 84443; 85025; 86140

== ENCOUNTER 2024-09-09 09:53 | Outpatient (AMB) | payer OTHER, SELFPAY ==
[2024-09-09 09:57] VITALS: BP 120/80; PULSE 65; TEMP 36.3; O2SAT 98; BMI 22.3
--- NOTE | 2024-09-09 09:57 | MHC.PC.OV ---
Vital Signs 09/09/24 09:57 Height 5 ft 6 in Weight 138 lb 2 oz BMI 22.3 BP 120/80 Blood Pressure Location Lt brachial Position Sitting Pulse 65 Pulse Source Pulse Oximeter Temp 97.3 F Temp Source Temporal Artery Scan Pulse Oximetry (%) 98 Oxygen Delivery Method Room Air Intake Visit Reasons: 6 mo follow up Intake Note: Patient is here to follow up on HLD, OCD. Full Time Required: No Customer Service Correspondence Clerk: Not Required per policy Accompanied by: Self / Same As Patient Allergies No Known Allergies Allergy (Verified 09/09/24 09:57) Tobacco use date assessed: 09/09/24 Dental Screening Dental Screen Date: 09/09/24 Did you have a dental visit in the last 12 months?: No Did you have a dental problem in the last 6 months where you did not have access to dental care?: No Was dental information given to patient?: No [facility] Medical History Vitamin D deficiency Hyperlipidemia Generalized anxiety disorder Obsessive compulsive disorder Lung nodules Surgical History History of colonoscopy (11/14/23) No pertinent past surgical history Family History Father No problems noted. Mother High blood pressure Heart problem Other Mental health problem Social History Housing: House Alcohol intake: current Alcohol intake frequency: holidays/special occasions only Alcohol type: beer and wine Patient Tobacco Use Status: Never used Tobacco Tobacco use type: Cigarette e-Cigarette/Vaping Use: Never Used Second Hand Smoke Exposure: Yes Substance Use Type: Marijuana service: No Current occupational status: unemployed Cognitive needs: No Hearing needs: No Vision needs: No Questionnaire PHQ-9 Over the last 2 weeks, how often have you been bothered by any of the following problems? 1. Little interest or pleasure in doing things: several days 2. Feeling down, depressed, or hopeless: several days 3. Trouble falling or staying asleep, or sleeping too much: not at all 4. Feeling tired or having little energy: several days 5. Poor appetite or overeating: several days 6. Feeling bad about yourself - or that you are a failure or have let yourself or your family down: several days 7. Trouble concentrating on things, such as reading the newspaper or watching television: several days 8. Moving or speaking so slowly that other people could have noticed. Or the opposite - being so fidgety or restless that you have been moving around a lot more than usual: several days 9. Thoughts that you would be better off or of hurting yourself in some way: not at all Total score: 7 Depression Screening Interpretation: Positive Depression Screening Done: Yes Source: Developed by Drs. Harvey Acosta, Soraya Rouse, Lit Quijano and colleagues, with an educational graciela from [employer]. Thrive Questionnaire Date Thrive assessed: 09/09/24 I am a: Patient What is your living situation today?: I have a steady place to live Within the past 12 months, did the food you bought not last and you didn't have the money to get more?: Never true Within the past 12 months, did you worry whether your food would run out before you got money to buy more?: Never true Do you have trouble paying for medicines?: No Do you have trouble getting transportation to medical appointments?: No Do you have trouble paying your heating and electricity bill?: No Do you have trouble taking care of your child, family member or friend?: No Do you have trouble with day-to-day activities such as bathing, preparing meals, shopping, managing finances, etc.?: No Are you currently unemployed and looking for a job?: No Are you interested in more education?: No Please select the resources that you would like help with: None THRIVE Score: 0 AUDIT C Alcohol Use Questionnaire (AUDIT-C) 1. How often do you have a drink containing alcohol?: Monthly or less 2. How many drinks containing alcohol do you have on a typical day when you are drinking?: 1 or 2 3. How often do you have six or more drinks on one occasion?: Never Total Score: 1 Score Reviewed/Action Taken: Yes (reviewed, no action ) GRANT-7 AMB Questionnaire GRANT-7 Date GRANT - 7 assessed: 09/09/24 Feeling nervous, anxious, or on edge: 2 = More than half the days Not being able to stop or control worryin = Several days Worrying too much about different things: 1 = Several days Trouble relaxin = Several days Being so restless that it is hard to sit still: 0 = Not at all Becoming easily annoyed or irritable: 0 = Not at all Feeling afraid as if something awful might happen: 0 = Not at all Total GRANT-7 score (0-4 normal; 5-9 mild; 10-14 moderate; 15-21 severe): 5 Source: Developed by Drs. Harvey Acosta, Soraya Rouse, Lit Quijano and colleagues, with an educational graciela from [employer]. Physical exam (Primary Care) Vital Signs: Last Vital Signs Temp 97.3 F 09/09/24 09:57 Pulse 65 09/09/24 09:57 BP 120/80 09/09/24 09:57 Pulse Ox 98 09/09/24 09:57 Oxygen Delivery Method Room Air 09/09/24 09:57 BMI result Body Mass Index 22.3 Tobacco/Smoking Status: Tobacco use Status Tobacco use date assessed 09/09/24 09/09/24 09:58 Patient Tobacco Use Status Never used Tobacco 09/09/24 09:58 Tobacco use type Cigarette 09/09/24 09:58 e-Cigarette/Vaping Use Never Used 09/09/24 09:58 PHQ-9: PHQ-9 Score PHQ-9: Total score 7 09/09/24 10:29 Depression Screening Interpretation: Positive Thrive Assessment: Date of Thrive Assessment Date Thrive assessed 09/09/24 09/09/24 09:58 Coding Level of Care Code Est Pt Level 4 (91717) Complex EM visit Add On G2211 Diagnoses Generalized anxiety disorder F41.1 Hyperlipidemia E78.5 Assessment & Plan Assessment & Plan (1) Generalized anxiety disorder: Code(s): F41.1 - Generalized anxiety disorder Category: Medical Plan: Condition is stable. Encouraged patient to exercise. (2) Hyperlipidemia: Code(s): E78.5 - Hyperlipidemia, unspecified Category: Medical Plan: History of Present Illness The patient is a 44-year-old male presenting with presbyopia. He noticed difficulties in reading small print, often linked to aging, and has begun using reading glasses to aid his vision. This adjustment has provided relief, and he reports no other vision problems. Concurrently, the patient is managing hyperlipidemia. After undergoing blood work in July, he commenced cholesterol medications about two weeks ago. The patient follows a nightly medication routine without encountering side effects. Despite his decreased physical activity due to occupational changes, he remains committed to maintaining a regular diet and exercise regimen to manage his condition effectively. 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 - Exercise: He reports a decreased level of physical activity due to his current sedentary job. - Functional Status: Capable of performing all activities of daily living. - Sleep: Sleeping well. - Current Nutritional Intake: Patient attempts to continue a regular diet. Review of Systems - Eyes: Reports difficulty reading small text; Denies acute visual disturbances. - Neurological: Denies difficulty sleeping. Physical Exam General: Cooperative and healthy appearing Nutritional Appearance: Well nourished Orientation/consciousness: Patient oriented x3 Limitations: No limitations Head: Normal to inspection General: Appearance normal, both eyes and all related structures Neck: Normal visual inspection Chest: Normal palpation of entire chest wall Respiratory: Normal respiratory effort Neurology: Patient oriented x3 Results - Labs: Blood work was performed in July prior to medication initiation for hyperlipidemia. Plan The treatment for hyperlipidemia includes maintaining the current medication regimen, which the patient is tolerating without side effects. Emphasis was placed on continuing regular medication intake and dietary and exercise modifications due to occupational changes affecting physical activity. Concerning presbyopia, the patient is advised to continue using reading glasses. Additional evaluation by an vocational education professional is recommended for further examination if needed. Follow-up is arranged for six months to review the ongoing management of these conditions. Patient was informed and verbally consented to the use of an ambient scribe for clinic note documentation during this visit. Discussion Notes I discussed with the patient the current management strategy for hyperlipidemia, emphasizing the importance of adherence to medication and lifestyle modifications despite his occupation-related decrease in physical activity. We addressed concerns about medication side effects, reassuring the patient based on his positive tolerance thus far. Regarding presbyopia, I advised continued use of reading glasses and suggested future consultation with an vocational education professional. Follow-up visits in six months were planned to reevaluate and adjust treatments as necessary. Patient Instructions - Continue taking cholesterol medication nightly as prescribed. - Use reading glasses for better vision with small text. - Maintain a balanced diet and engage in exercise where possible. - Schedule an appointment with an rental representative or consulting business developer for further eye examination if needed. - Follow-up in six months for reassessment of hyperlipidemia management.
== END 2024-09-09 11:04 | disposition home or self-care (01) ==
LOC: HO.HMCH 09:53
PROVIDERS: PCP Internal Medicine; Visit Provider Internal Medicine
DX: F41.1 Generalized anxiety disorder (principal); E78.5 Hyperlipidemia, unspecified

== ENCOUNTER → 2024-09-09 09:53 | Outpatient (BNVA) | payer OTHER, SELFPAY | PROVIDERS: PCP Internal Medicine; Visit Provider Internal Medicine | DX: F41.1 Generalized anxiety disorder (principal); E78.5 Hyperlipidemia, unspecified | CPT/HCPCS: 99212 ==

== ENCOUNTER 2025-03-17 10:23 | Outpatient (REF) | payer OTHER, SELFPAY ==
[2025-03-17 11:53] LABS: Hematocrit 40.2 % (42.0-52.0); Hemoglobin 13.6 g/dl (14.0-18.0); Mean Corpuscular HGB Conc 33.8 g/dl (31.0-36.0); Mean Corpuscular Hemoglobin 30.4 pg (27.0-33.0); Mean Corpuscular Volume 89.9 fL (80.0-98.0); NRBC Abs Auto 0.000 X10*3/uL (0.0-0.012); NRBC Pct Auto 0.0 /100WBC (0.0-0.2); Platelet Count 335 X10*3/uL (160-400); Red Blood Count 4.47 X10*6/uL (4.60-5.80); White Blood Count 6.0 X10*3/uL (4.8-10.8)
[2025-03-17 12:10] LABS: Appearance Urine Clear; Glucose Urine UA Negative (Negative); PH 7.5 (5.0-9.0); Specific Gravity - Urine 1.010 (1.005-1.025); UMIC TRIGGER UA YES
[2025-03-17 12:51] LABS: Alanine Aminotransferase 29 U/L (0-40); Albumin Level 4.4 g/dL (3.5-5.0); Alkaline Phosphatase 67 U/L (39-117); Anion Gap 9 (12-20); Aspartate Amino Transferase 28 U/L (5-37); Blood Urea Nitrogen 13 mg/dL (9-16); Calcium 9.0 mg/dL (8.4-10.2); Carbon Dioxide 30 mmol/L (22-29); Chloride 106 mmol/L (96-108); Cholesterol 160 mg/dL (<200); Estimated Glomerular Filt Rate > 60; HDL Cholesterol 54 mg/dL (>40); Potassium 4.3 mmol/L (3.3-5.1); Sodium 141 mmol/L (135-145); Total Protein 7.0 g/dL (6.5-8.0); Triglycerides 71 mg/dL (<150)
[2025-03-17 12:58] LABS: Thyroid Stimulating Hormone 0.70 uIU/mL (0.32-4.0)
--- OUTSIDE RECORDS SUMMARY | 2025-03-17 15:55 | XMS_ITS | Clinical Summary ---
Author Organization [facility] Address [address] [facility] [address] [place] [phone] Phone Care Team Providers Care Pecan Picker Name Role Phone Wilmer Burt MD Primary Care Provid er Allergies No known active allergies Medications psyllium (NATURAL FIBER SUPPLEMENT) 3.4 gram packet 1 packet with 8 ounces of liquid as needed Active Family History Relation Status Comments Father Alive Mother Alive Social History Tobacco Use Types Packs/Day Years Used Date Smoking Tobacco: Former Cigarettes Smokeless Tobacco: Never Tobacco Cessation:Counseling Given: Not Answered Comments:very little in his 20's Alcohol Use Standard Drinks/Week Comments Yes 2 (1 standard drink = 0.6 oz pur e alcohol) weekly Education Answer Date Recorded Are you interested in more education? Not on kailyn e 10/18/2022 Are you concerned about learning? Not on file 10/18/2022 No 10/18/2022 No 10/18/2022 Digital Access Answer Date Recorded No 11/18/2022 No 11/18/2022 Reliable internet access at home? Not on file 11/18/2022 Device with a working camera? Not on file Intimate Partner Violence Answer Date R ecorded Are you denied basic needs s uch as food, clothing, or medical care? No 11/11/2023 In the past 12 months have y ou been in a relationship with a person who hurts, threatens, or tries to control you? No 11/11/2023 Are you denied basic needs s uch as food, clothing, or medical care? No 11/11/2023 In the past 12 months have y ou been in a relationship with a person who hurts, threatens, or tries to control you? No 11/11/2023 Sex and Gender Information Value Date Recorded Sex Assigned at Not on file Legal Sex Male 9:22 PM EDT Gender Identity Not on file Sexual Orientation Not on file Last Filed Vital Signs Vital Sign Reading Time Taken Comments Blood Pressure 104/69 11/11/2023 8:45 AM EDT Pulse 70 11/11/2023 8:45 AM EDT Temperature 36.2 C (97.2 F) 11/11/2023 8:40 AM EDT Respiratory Rate 11 11/11/2023 8:45 AM EDT Oxygen Saturation 99% 11/11/2023 8:45 AM EDT Inhaled Oxygen Concentration - - Weight 57.4 kg (126 lb 9.6 oz) 10/25/2019 2:27 P M EDT Height 165.1 cm (5' 5 ) 10/25/2019 2:27 PM EDT Body Mass Index 21.07 10/25/2019 2:27 PM EDT Plan of Treatment Health Maintenance Due Date Last Done Comments LIPID PANEL 1980 DEPRESSION SCREENING 1992 SMOKING Hx and SMOKELESS TOBACCO SCREENING 01/10/1993 HEPATITIS C SCREENING 01/10/1998 HIV ONE-TIME SCREENING (18-6 5 YEARS) 01/10/1998 COLOGUARD 01/10/2025 FIT TEST 01/10/2025 FOBT 01/10/2025 SIGMOIDOSCOPY 01/10/2025 VIRTUAL COLONOSCOPY 01/10/2025 INFLUENZA VACCINE (#1) 2025 , 06/05/2020 Adult Td,Tdap Booster 02/21/2025 02/21/2015 COVID-19 VACCINE (2024-2 6 season) 2025 07/24/2021, 11/16/2020, 10/26/2020 COLONOSCOPY 11/10/2033 11/11/2023, 08/21/2018 COLORECTAL CANCER SCREENING 11/10/2033 HEPATITIS A VACCINES Aged Out No long er eligible based on patient's age to complete this topic HIB VACCINES Aged Out No longer eligi ble based on patient's age to complete this topic MENINGOCOCCAL VACCINES (ACWY) Aged Out No longer eligible based on patient's age to complete this topic MENINGOCOCCAL VACCINES (B) Aged Out N o longer eligible based on patient's age to complete this topic PNEUMOCOCCAL VACCINES (0-49 years) Aged Out No longer eligible b ased on patient's age to complete this topic Medical Devices Not on file Procedures Procedure Name Priority Date/Time Associated Diagnosis Comments ENDOSCOPY, COLON 11/11/2023 7:2 7 AM EDT from Last 3 Months or Most Recently Relevant to Health Maintenance Results * ENDOSCOPY, COLON (11/11/2023 7:27 AM EDT) Narrative Transcriptions Santo Rubin MD - 11/11/2023 7:27 AM EDT [facility] Patient Name: Luciano Stark Attending MD:: SANTO RUBIN MD, Procedure Date: 11/11/2023 7:27 AM Date of : 1980 Age: 43 Admit Type: Outpatient Gender: Male Room: [place] [address] Exam Type: Colonoscopy Indications: Screening for colon cancer: Family history of colorectal cancer in multiple 2nd degree relatives, Last colonoscopy: August 2018 (Uncle @45, GF) Medications: Propofol per Anesthesia Procedure: Informed consent was obtained from the patientafter discussion of the indications, limitations, alternatives, benefits, and risks of the procedure. Risks specifically discussed include but are not limited to medication reactions, missed lesions, bleeding, perforation, or the need for emergent surgery. Throughout the procedure, the patient's blood pressure, pulse, end-tidal CO2, and oxygensaturations were monitored continuously. The Olympus adult variable colonoscope [id number] #3 was introduced through the anus and advanced to the cecum, identified by appendiceal orifice andileocecal valve. The ileocecal valve, appendiceal orifice,and rectum were photographed. The colonoscopy was performed without difficulty. The patient tolerated the procedure well. The quality of the bowel preparation was excellent. The bowel preparationused was Miralax via split dose instruction. Complications: No immediate complications. Estimated blood loss:None. Findings: The perianal and digital rectal examinations were normal. Pertinent negatives include normal prostate (size, shape, and consistency). Internal hemorrhoids were found duringretroflexion. The hemorrhoids were small. The entire examined colon appeared normal. Retroflexion in the right colon was performed. Impression: - Internal hemorrhoids. - The entire examined colon is normal. - No specimens collected. Recommendation: - Repeat colonoscopy in 5-7 years for screening purposes. SANTO RUBIN MD 11/11/2023 8:31:39 AM This report has been signed electronically. Number of Addenda: 0 Note Initiated On: 11/11/2023 7:27 AM Procedure Code(s): --- Professional --- 07663, Colonoscopy, flexible; diagnostic, including collection of specimen(s) by brushing or washing, when performed (separateprocedure) --- Technical --- 07291, Colonoscopy, flexible; diagnostic, including collection of specimen(s) by brushing or washing, when performed (separateprocedure) Diagnosis Code(s): --- Professional --- Z80.0, Family history of malignant neoplasm of digestive organs K64.8, Other hemorrhoids --- Technical --- Z80.0, Family history of malignant neoplasm of digestive organs K64.8, Other hemorrhoids CPT copyright 202 [employer] [place] [employer]. All rights reserved. The codes documented in this report are preliminary and upon residential sales representative reviewmay be revised to meet current compliance requirements. Procedure Date: 11/11/2023 7:27:[address] [place] [address] [id number] us Unknown Unknown GI PROCEDURE ORDERABLES Final Result from Last 3 Months or Most Recently Relevant to Health Maintenance [place] [address] [address] [address] [place] [address] [place] [address] [place] [address] [place] [address] [address] [address] [employer] [place] [address] [place] [address] [employer] [facility] Care Teams Pecan Picker Relationship Specialty Start Date End Date Wilmer Burt MD [address] [place] [id number] PCP - General Internal Medicine 10/11/19 Additional Source Comments The information contained in this document represents components of the legal health record. It is not the complete legal health record.[facility]
--- OUTSIDE RECORDS SUMMARY | 2025-03-17 15:55 | XMS_ITS | Encounter Summary ---
Author Organization [facility] Address [address] [facility] [address] [place] [address] Phone Care Team Providers Care Information Systems Professor Name Role Phone Chava Aleman DO Primary Care Provider [phone] Wilmer Burt MD Primary Care Provid er Encounter Details Date Type Department Care Team (Late st Contact Info) Description 08/21/2018 Procedure Pass [facility] Endoscopy Admitting Dept Virtual Department [address] [place] [address] Social History Tobacco Use Types Packs/Day Years Used Date Smoking Tobacco: Never Smokeless Tobacco: Never Alcohol Use Standard Drinks/Week Comments Yes 2 (1 standard drink = 0.6 oz pur e alcohol) Sex and Gender Information Value Date Recorded Sex Assigned at Not on file Legal Sex Male 9:22 PM EDT Gender Identity Not on file Sexual Orientation Not on file documented as of this encounter Plan of Treatment Not on file documented as of this encounter Visit Diagnoses Not on filedocumented in this encounter Care Teams Information Systems Professor Relationship Specialty Start Date End Date Chava Aleman DO PCP - General 04/08/17 10/10/19 Wilmer Burt MD [address] [place] [id number] PCP - General Internal Medicine 10/11/19 documented as of this encounter Additional Source Comments The information contained in this document represents components of the legal health record. It is not the complete legal health record.[facility]
--- OUTSIDE RECORDS SUMMARY | 2025-03-17 15:55 | XMS_ITS | Encounter Summary ---
Author Organization [facility] Address [address] [facility] [address] [place] [phone] Phone Care Team Providers Care Glue Jointer Operator Name Role Phone Wilmer Burt MD Primary Care Provid er Encounter Details Date Type Department Care Team (Late st Contact Info) Description 11/11/2023 Procedure Pass [facility] Endoscopy Admitting Dept Virtual Department [address] [place] [address] Social History Tobacco Use Types Packs/Day Years Used Date Smoking Tobacco: Former Cigarettes Smokeless Tobacco: Never Comments:very little in his 20's Alcohol Use [...] on filedocumented in this encounter Care Teams Glue Jointer Operator Relationship Specialty Start Date End Date Wilmer Burt MD [address] [place] [address] PCP - General Internal Medicine 10/11/19 documented as of this encounter Additional Source Comments The information contained in this document represents components of the legal health record. It is not the complete legal health record.[facility]
== END 2025-03-17 10:24 | disposition home or self-care (01) ==
LOC: HO.LAB 10:23
PROVIDERS: PCP Internal Medicine; Visit Provider Internal Medicine
DX: E78.5 Hyperlipidemia, unspecified (principal)
CPT/HCPCS: 36415; 80048; 80061; 80076; 81001; 81003; 84443; 85027; 99212

== ENCOUNTER 2025-03-17 10:23 | Outpatient (AMB) | payer OTHER, SELFPAY ==
--- NOTE | 2025-03-17 10:30 | A.OFFPC_ITS ---
Vital Signs 03/17/25 10:31 Height 5 ft 6 in Weight 133 lb 4 oz BMI 21.5 BP 120/70 Blood Pressure Location Lt brachial Position Sitting Pulse 68 Pulse Source Pulse Oximeter Temp 97.1 F Temp Source Temporal Artery Scan Pulse Oximetry (%) 99 Oxygen Delivery Method Room Air Intake Visit Reasons: annual exam Intake Note: Patient is here today for a physical. Ase Master Mechanic Required: No Public Health Policy Analyst: Not Required per policy Accompanied by: Self / Same As Patient Allergies No Known Allergies Allergy (Verified 03/17/25 10:31) Tobacco use date assessed: 03/17/25 Dental Screening Dental Screen Date: 09/09/24 COUNT INCLUDES [facility] Medical History Vitamin D deficiency Hyperlipidemia Generalized anxiety disorder Obsessive compulsive disorder Lung nodules Surgical History History of colonoscopy (11/11/23) No pertinent past surgical history Family History Father No problems noted. Mother High blood pressure Heart problem Other Mental health problem Social History Housing: House Alcohol intake: current Alcohol intake frequency: holidays/special occasions only Alcohol type: beer and wine Patient Tobacco Use Status: Never used Tobacco Tobacco use type: Cigarette e-Cigarette/Vaping Use: Never Used Second Hand Smoke Exposure: Yes Substance Use Type: Marijuana service: No Current occupational status: unemployed Cognitive needs: No Hearing needs: No Vision needs: No Questionnaire PHQ-9 Over the last 2 weeks, how often have you been bothered by any of the following problems? 1. Little interest or pleasure in doing things: not at all 2. Feeling down, depressed, or hopeless: not at all 3. Trouble falling or staying asleep, or sleeping too much: not at all 4. Feeling tired or having little energy: not at all 5. Poor appetite or overeating: not at all 6. Feeling bad about yourself - or that you are a failure or have let yourself or your family down: not at all 7. Trouble concentrating on things, such as reading the newspaper or watching television: not at all 8. Moving or speaking so slowly that other people could have noticed. Or the opposite - being so fidgety or restless that you have been moving around a lot more than usual: not at all 9. Thoughts that you would be better off or of hurting yourself in some way: not at all Total score: 0 Depression Screening Interpretation: Negative Depression Screening Done: Yes Source: Developed by Drs. Harvey Acosta, Soraya Rouse, Lit Quijano and colleagues, with an educational graciela from [employer]. Thrive Questionnaire Date Thrive assessed: 03/10/25 I am a: Patient What is your living situation today?: I have a steady place to live Within the past 12 months, did the food you bought not last and you didn't have the money to get more?: Never true Within the past 12 months, did you worry whether your food would run out before you got money to buy more?: Never true Do you have trouble paying for medicines?: No Do you have trouble getting transportation to medical appointments?: No Do you have trouble paying your heating and electricity bill?: No Do you have trouble taking care of your child, family member or friend?: No Do you have trouble with day-to-day activities such as bathing, preparing meals, shopping, managing finances, etc.?: No Are you currently unemployed and looking for a job?: No Are you interested in more education?: No Please select the resources that you would like help with: None Currently or been in a relationship where the following occur: No concerns reported THRIVE Score: 0 AUDIT C Alcohol Use Questionnaire (AUDIT-C) 1. How often do you have a drink containing alcohol?: 2-4 times a month 2. How many drinks containing alcohol do you have on a typical day when you are drinking?: 1 or 2 3. How often do you have six or more drinks on one occasion?: Never Total Score: 2 GRANT-7 AMB Questionnaire GRANT-7 Date GRANT - 7 assessed: 09/09/24 Feeling nervous, anxious, or on edge: 1 = Several days Not being able to stop or control worryin = Not at all Worrying too much about different things: 0 = Not at all Trouble relaxin = Not at all Being so restless that it is hard to sit still: 0 = Not at all Becoming easily annoyed or irritable: 0 = Not at all Feeling afraid as if something awful might happen: 0 = Not at all Total GRANT-7 score (0-4 normal; 5-9 mild; 10-14 moderate; 15-21 severe): 1 Source: Developed by Drs. Harvey Acosta, Soraya Rouse, Lit Quijano and colleagues, with an educational graciela from [employer]. Physical exam (Primary Care) Vital Signs: Last Vital Signs Temp 97.1 F 03/17/25 10:31 Pulse 68 03/17/25 10:31 BP 120/70 03/17/25 10:31 Pulse Ox 99 03/17/25 10:31 Oxygen Delivery Method Room Air 03/17/25 10:31 BMI result Body Mass Index 21.5 Tobacco/Smoking Status: Tobacco use Status Tobacco use date assessed 03/17/25 03/17/25 10:31 Patient Tobacco Use Status Never used Tobacco 03/17/25 10:31 Tobacco use type Cigarette 03/17/25 10:31 e-Cigarette/Vaping Use Never Used 03/17/25 10:31 PHQ-9: PHQ-9 Score PHQ-9: Total score 0 03/17/25 10:31 Depression Screening Interpretation: Negative Thrive Assessment: Date of Thrive Assessment Date Thrive assessed 03/10/25 03/17/25 10:31 Currently or been in a relationship where the following occur: No concerns reported Coding Level of Care Code Est Pt Level 4 (65706) Complex EM visit Add On G2211 Diagnoses Hyperlipidemia E78.5 Assessment & Plan Assessment & Plan (1) Hyperlipidemia: Code(s): E78.5 - Hyperlipidemia, unspecified Category: Medical Plan: History of Present Illness - The patient is a 45-year-old male presenting for a routine follow-up and preventative care visit. - Presbyopia: The patient reports difficulty reading small print, which has not improved as he has not yet consulted an supervisor engraving. - Hyperlipidemia: The patient was started on statin therapy in July but admits to occasional non-adherence to the medication regimen. - Preventative care: The patient undergoes regular colonoscopies due to family history of colon cancer, with the interval recently extended from five to eight years. - Social History: The patient works as a ride-share spotter driver and reports limited exercise, though he is capable of performing activities of daily living. Social History - Employment: Works as a ride-share spotter driver. - Exercise: Reports limited physical activity. - Functional Status: Capable of performing activities of daily living. Review of Systems - Ophthalmologic: Reports difficulty reading small print. - General: Denies any current health concerns. - Respiratory: Denies pain during breathing. - Psychiatric: Denies significant depression, reports improvement in mood. Physical Exam General: Cooperative and healthy appearing Nutritional Appearance: Well nourished Orientation/consciousness: Patient oriented x3 Limitations: No limitations Head: Normal to inspection General: Appearance normal, both eyes and all related structures Neck: Normal visual inspection Chest: Normal palpation of entire chest wall Respiratory: No pains reported during breathing ormal respiratory effort Neurology: Patient oriented x3, no depression, minor improvements noted Results - Labs: Previous blood work in July was normal. Plan - Presbyopia: Patient advised to consult an supervisor engraving for further evaluation. - Hyperlipidemia: Continue statin therapy with emphasis on adherence; repeat blood work to assess lipid levels. - Preventative care: Continue with regular colonoscopies as per protocol due to family history. - Follow-up: Schedule next visit in six months for ongoing management and evaluation. Discussion Notes I discussed with the patient the importance of adhering to his statin therapy to manage hyperlipidemia effectively. We also talked about the need for regular colonoscopies due to his family history of colon cancer. I advised him to consult an supervisor engraving for his presbyopia. We agreed on a follow-up visit in six months to reassess his condition and review his blood work results. Patient Instructions - Take statin medication daily as prescribed. - Schedule an appointment with an eye doctor for vision issues. - Continue regular colonoscopies as advised by your healthcare provider. - Return for follow-up in six months. Orders: Orders Lipid Panel Today E78.5 - Hyperlipidemia, unspecified Basic Metabolic Panel Today E78.5 - Hyperlipidemia, unspecified Thyroid Stimulating Hormone Today E78.5 - Hyperlipidemia, unspecified Liver Panel Today E78.5 - Hyperlipidemia, unspecified Complete Blood Count no Diff Today E78.5 - Hyperlipidemia, unspecified UA and rflx microscopic Today E78.5 - Hyperlipidemia, unspecified
[2025-03-17 10:31] VITALS: BP 120/70; PULSE 68; TEMP 36.2; O2SAT 99; BMI 21.5
== END 2025-03-17 11:06 | disposition home or self-care (01) ==
LOC: HO.HMCH 10:23
PROVIDERS: PCP Internal Medicine; Visit Provider Internal Medicine
DX: E78.5 Hyperlipidemia, unspecified (principal)